=== PATIENT | male | born 1975 | race Caucasian/White ===

== ENCOUNTER → 2016-04-11 | Day surgery (SDC) | payer OTHER ==
[2016-04-11 07:52] LABS: HCT 43.9 % (42.0-52.0); HGB 15.2 g/dl (13.2-18.0); MCH 30.2 pg (25.0-31.0); MCHC 34.6 g/dL (32.0-36.0); MCV 87.1 fL (78.0-100.0); MPV 9.9 fL (6.0-9.5); RBC 5.04 M/uL (4.70-6.00); RDW 13.8 % (11.5-14.0); WBC 7.2 K/uL (4.0-10.5)
[2016-04-11 08:13] LABS: ALBUMIN 4.5 g/dL (3.5-5.0); BILIRUBIN - TOTAL 0.4 mg/dL (0.1-1.0); CREATININE 0.8 mg/dL (0.7-1.2); GLOBULIN (CALCULATION) 2.4 g/dL (2.2-4.2); TOTAL PROTEIN 6.9 g/dL (6.4-8.3)
== END | disposition home or self-care (01) ==
LOC: FAS 07:32
PROVIDERS: Surgery
DX: K40.90 Unilateral inguinal hernia, without obstruction or gangrene, not specified as recurrent (principal); Z88.0 Allergy status to penicillin; Z82.5 Family history of asthma and other chronic lower respiratory diseases; Z83.3 Family history of diabetes mellitus; Z87.891 Personal history of nicotine dependence
CPT/HCPCS: 36415; 80053; C1727; C1781; J1170; J1956; J2704; J2710; J3010